=== PATIENT | male | born 1995 | race Two or more races ===

== ENCOUNTER 2023-08-22 13:56 | Emergency (ER) | payer MEDICAID, SELFPAY ==
[2023-08-22 13:58] VITALS: BP 135/70; PULSE 88; RESP 16; TEMP 36.4; O2SAT 100; BMI 21.8
--- NOTE | 2023-08-22 14:40 | ED.RN ---
Per Corinna SALCEDO, no sitter is needed at this time.
--- NOTE | 2023-08-22 14:42 | ED.RN ---
personal belongings removed from room and patient placed in a gown. Pt. has 3 belongings bags and a large yellow duffel bag. pt. updated that we would need to wait for blood and urine tests to come back then we can page crisis for him to be evaluated. pt. offered food and a remote and pt. declined.
[2023-08-22 14:47] LABS: Absolute Lymphocyte Count 1.38 X10^3/uL (0.83-4.51); Absolute Neutrophil Count 5.8 X10^3/uL (2.0-7.7); Basophil# 0.04 X10^3/uL; Basophil% 0.5 % (0-1); Eosinophil# 0.17 X10^3/uL; Eosinophils% 2.1 % (0-5); Hemoglobin 14.8 g/dL (13.0-16.5); Lymphocyte # 1.38 X10^3/ul (0.83-4.51); Mean Corp Hgb Conc 33.6 g/dL (32-36); Mean Corpuscular Hgb 30.8 pg (27.0-32.0); Mean Corpuscular Volume 91.5 fL (80-94); Mean Platelet Vol. 10.5 fl (6.2-12.0); Monocyte# 0.73 X10^3/uL; NRBC Flagged by Analyzer 0 % (0-5); Neutrophil # 5.81 X10^3/uL (2.7-7.7); Neutrophil % 71.3 % (47-70); Platelet Count 171 K/mm3 (150-450); RBC Distribution Width CV 12.4 % (11.6-14.6); RBC Distribution Width SD 41.7 fl (35.1-43.9); Red Blood Count 4.81 M/mm3 (4.6-6.2); White Blood Count 8.1 K/mm3 (4.4-11.0)
--- NOTE | 2023-08-22 14:54 | EX.ED.VIS.PS ---
HPI <MATIAS Ariza - Last Filed: 08/22/23 20:51> HPI - Psych History of Present Illness Chief Complaint: Mental Health Narrative Narrative: Today due to hallucinations. He reports that he has been hearing voices and seeing things for a long time, they do not tell him to hurt himself or do anything in particular. He reports, I am crazy. I think people are after me. I hear voices in my head. These voices are worse when I am mad. These voices do not like me. I feel like nobody likes me. Patient reports that he told his mom about what he has been experiencing and she encouraged him to come in for evaluation. He denies being diagnosed with any psychiatric conditions. He reports a remote history of suicidal ideation, but nothing recently. He reports that he is taking Suboxone that is not prescribed to him, occasionally drinks alcohol, occasionally uses cocaine, and regularly uses marijuana. He denies SI, HI. He denies any chronic health conditions. 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 PFSH <MATIAS Ariza - Last Filed: 08/22/23 20:51> COUNTS INCLUDE 234 BEDS AT [facility] Home Medications NK 08/22/23 [History Last Taken Unknown] Allergy/AdvReac Type Severity Reaction Status Date / Time No Known Allergies Allergy Verified 08/22/23 13:58 Social History Smoking Status: Current every day smoker tobacco type: e-cigarettes ROS <MATIAS Ariza - Last Filed: 08/22/23 20:51> ROS ED Constitutional Constitutional ED: Denies chills or fever(s) Cardiovascular Cardiovascular: Denies chest pain Respiratory/Chest Respiratory/Chest: Denies cough or dyspnea Gastrointestinal Gastrointestinal: Denies abdominal pain, nausea or vomiting Musculoskeletal Musculoskeletal: Denies arthralgias or myalgias Integumentary Denies Abrasions or rash Neurologic Neurologic: Denies weakness Psychiatric Psychiatric: Reports auditory hallucinations and visual hallucinations; Denies homicidal ideation, suicidal ideation or suicidal thoughts EXAM <MATIAS Ariza - Last Filed: 08/22/23 20:51> Physical Exam Const Vital Signs: 08/22/23 13:58 08/22/23 16:00 08/22/23 18:00 Temperature 97.6 F L Temperature Source Temporal Pulse Rate 88 Respiratory Rate 16 16 16 Blood Pressure 135/70 H Blood Pressure Mean 91 Pulse Ox 100 Oxygen Delivery Method Room Air Positive well nourished, well developed and no apparent distress General Appearance ED: well developed HEENT Reports normocephalic and head/scalp atraumatic Mouth ED: Yes moist mucous membranes normal Eyes PERRL and EOMs intact bilaterally Neck full ROM and supple Chest Wall inspection of chest normal Resp normal respiratory effort and clear to auscultation bilaterally Cardio regular rate and regular rhythm GI soft to palpation, non-tender, non-distended and no masses Back/Spine normal ROM and normal to inspection Extremity normal to inspection and full ROM Neuro oriented x3, CN's II-XII intact bilaterally, moves all extremities, no focal motor deficits and no sensory deficits noted Sensorium / Orientation: awake and alert Psych Appearance: grossly normal Attitude: paranoid Activity / Motor Behavior: appropriate eye contact Mood & Affect: flat affect Thought Content: phobia(s) and delusion(s) Insight: poor Judgement: poor Skin no rashes or lesions noted and no wounds <Dr. Callie Rojas MD - Last Filed: 08/22/23 15:33> Physical Exam Const Vital Signs: 08/22/23 13:58 08/22/23 16:00 08/22/23 18:00 Temperature 97.6 F L Temperature Source Temporal Pulse Rate 88 Respiratory Rate 16 16 16 Blood Pressure 135/70 H Blood Pressure Mean 91 Pulse Ox 100 Oxygen Delivery Method Room Air MDM <MATIAS Ariza - Last Filed: 08/22/23 20:51> [facility] Narrative Medical decision making narrative: Patient presenting due to hallucinations that he reports has been going on a long time. He cannot tell me in particular what the voices in his head are telling him. He reports that he is also seeing things but cannot explain exactly what he is seeing. Psychiatric clearance labs will be obtained and crisis will evaluate patient. Crisis agrees that patient would benefit from inpatient placement and are working on the referral. Patient then did become hostile with the nursing staff, he wanted to go outside to smoke his vape, they offered him a nicotine patch but he began yelling at the nurses. Nurses did get security involved and patient continued to be uncooperative. He was ordered Benadryl and Geodon by the attending ED physician. Patient has been pink slipped. Placement pending. Lab Data Attestation: I reviewed the patient's lab results. Lab results narrative: Urine toxicology screen positive for cannabinoids Labs: Laboratory Results - last 24 hr 08/22/23 14:39 WBC 8.1 RBC 4.81 Hgb 14.8 Hct 44.0 MCV 91.5 MCH 30.8 MCHC 33.6 RDW Std Deviation 41.7 RDW Coeff of Bernarda 12.4 Plt Count 171 MPV 10.5 Immature Gran % (Auto) 0.100 Neut % (Auto) 71.3 H Lymph % (Auto) 17.0 L [place] % (Auto) 9.0 Eos % (Auto) 2.1 Baso % (Auto) 0.5 Absolute Neuts (auto) 5.8 Absolute Lymphs (auto) 1.38 Nucleated RBC % 0 Sodium 140 Potassium 3.5 Chloride 111 H Carbon Dioxide 25.0 Anion Gap 4 L BUN 17 Creatinine 1.03 Estim Creat Clear Calc 118.61 Est GFR (MDRD) Af Amer 109 Est GFR (MDRD) Non-Af 90 BUN/Creatinine Ratio 16.5 Glucose 124 H Calcium 9.4 Urine Opiates Screen NEGATIVE Urine Methadone Screen NEGATIVE Ur Barbiturates Screen NEGATIVE Ur Phencyclidine Scrn NEGATIVE Ur Amphetamines Screen NEGATIVE MDMA (Ecstasy) Screen NEGATIVE U Benzodiazepines Scrn NEGATIVE Urine Cocaine Screen NEGATIVE U Cannabinoids Screen POSITIVE H Ur Drug Screen Comment Ethyl Alcohol < 3.0 <Dr. Callie Rojas MD - Last Filed: 08/22/23 15:33> [facility] Lab Data Labs: Laboratory Results - last 24 hr 08/22/23 14:39 WBC 8.1 RBC 4.81 Hgb 14.8 Hct 44.0 MCV 91.5 MCH 30.8 MCHC 33.6 RDW Std Deviation 41.7 RDW Coeff of Bernarda 12.4 Plt Count 171 MPV 10.5 Immature Gran % (Auto) 0.100 Neut % (Auto) 71.3 H Lymph % (Auto) 17.0 L [place] % (Auto) 9.0 Eos % (Auto) 2.1 Baso % (Auto) 0.5 Absolute Neuts (auto) 5.8 Absolute Lymphs (auto) 1.38 Nucleated RBC % 0 Sodium 140 Potassium 3.5 Chloride 111 H Carbon Dioxide 25.0 Anion Gap 4 L BUN 17 Creatinine 1.03 Estim Creat Clear Calc 118.61 Est GFR (MDRD) Af Amer 109 Est GFR (MDRD) Non-Af 90 BUN/Creatinine Ratio 16.5 Glucose 124 H Calcium 9.4 Urine Opiates Screen NEGATIVE Urine Methadone Screen NEGATIVE Ur Barbiturates Screen NEGATIVE Ur Phencyclidine Scrn NEGATIVE Ur Amphetamines Screen NEGATIVE MDMA (Ecstasy) Screen NEGATIVE U Benzodiazepines Scrn NEGATIVE Urine Cocaine Screen NEGATIVE U Cannabinoids Screen POSITIVE H Ur Drug Screen Comment Ethyl Alcohol < 3.0 Treatment and Re-Evaluation Narrative: Patient seen and evaluated with GIANNA. I personally interviewed and examined the patient. I was involved in all aspects of patient's orders, interpretation of results, and treatment. Patient presents for mental health evaluation. He is complaining hallucinations. When I ask him specifically if he is seeing or hearing things he states both. He is not forthcoming when asked questions about what he is seeing or hearing. When I asked him if he is hearing voices that tell him to hurt himself he states no. He does admit to having thoughts of hurting himself in the past. He states he has never actually attempted to hurt himself. He tells me he does not follow with psychiatry. Patient lying prone in the bed in no acute distress. Sleeping comfortably and easily awakens. Head neck examination unremarkable. Heart is regular rate and rhythm. No lung sounds are clear. Abdomen is soft and nontender. Patient evasive when answering questions. Does admit to thoughts of hurting himself in the past but no actual attempt. Lab work unremarkable. Talk screen positive for cannabinoids. EtOH is negative. We will have crisis come see the patient to evaluate. Patient signed out to oncoming physician while awaiting evaluation and disposition. Discharge Plan Triage Chief Complaint: Mental Health ED Midlevel Provider: Corinna Friedman ED Provider: Callie Rojas Dx/Rx/DC Orders Clinical Impression: Auditory hallucinations, Hallucinations, visual Prescriptions: No Action NK Primary Care Provider: Care Physician,No Primary Referrals: Care Physician,No Primary [Primary Care Provider] -
[2023-08-22 15:14] LABS: Amphetamine Urine VISTA NEGATIVE (<1000 ng/mL); Barbiturate Urine VISTA NEGATIVE (< 200 ng/mL); Benzodiazepine Urine VISTA NEGATIVE (< 200 ng/mL); Cocaine Urine VISTA NEGATIVE (< 300 ng/mL); Ecstacy Urine VISTA NEGATIVE (< 500 ng/mL); Methadone Urine VISTA NEGATIVE (< 300 ng/mL); PCP Urine VISTA NEGATIVE (< 25 ng/mL); THC Urine VISTA POSITIVE (< 50 ng/mL); Vista UDS pH Range 6
[2023-08-22 15:27] LABS: Alcohol, Blood (Medical)-Serum < 3.0 mg/dL
[2023-08-22 15:28] LABS: Anion Gap 4 (5-15); BUN 17 mg/dL (7-18); BUN/Creat Ratio 16.5 RATIO (10-20); Calcium,Total 9.4 mg/dL (8.5-10.1); Chloride 111 mmol/L (98-107); Creatinine, Serum 1.03 mg/dL (0.70-1.30); EST Glomerular Filtration Rate 90 mL/min (>60); Est Glom Filt Rate - Afr Amer 109 mL/min (>60); Estimated Creatinine Clearance 118.61 ml/min; Glucose 124 mg/dL (74-106); Potassium 3.5 mmol/L (3.5-5.1); Sodium Level 140 mmol/L (136-145)
--- NOTE | 2023-08-22 15:29 | ED.RN ---
CRISIS CALLED, AWARE THAT PT WILL NEED EVALUATED.
[2023-08-22 16:00] VITALS: RESP 16
[2023-08-22 18:00] VITALS: RESP 16
--- NOTE | 2023-08-22 19:30 | ED.RN ---
at approx 1930 Pt asked for his phone, patient has multiple bags of belongings. Primary nurse brings 2 bags into patient for him to search for his phone. Pt got his out vape pen out and states he wants to go out to smoke. Nurse educates patient on our no smoking policy. Pt became very agitated. Nurse offers a nicotine patch, patient grabs his bags and proceeds to empty them out and get dressed. Security called to the room. Pt was not able to be redirected. He got up in the nurses face and security's face and was threatening harm to staff. Dr Mendez made aware.Pt was given multiple opportunities to comply to the rules. verbal de-escalation unsuccessful. Dispatch was called to send PD to bedside. 3 officers arrive to bedside. Pt given multiple opportunities to get into bed and put the gown back on. Pt states you put me in bed pt refuses to follow directions. PD and security and ED staff assist patient into the bed, he is yelling and fighting back. Pt was restrained at [address] Mendez's orders.
[2023-08-22] MEDS: DiphenhydrAMINE 50 MG/ML Syringe IM (19:42)
[2023-08-22] MEDS: Ziprasidone IM 20 MG/ML VIAL IM (19:42)
--- NOTE | 2023-08-22 20:25 | ED.RN ---
support worker speaks to Dr Mendez regarding setting patient up with outpatient services. Dr Mendez states he does not feel comfortable with that plan and feels the patient needs placed. support worker leaves without discussing anything further.
[2023-08-22 21:15] VITALS: BP 139/76; PULSE 84; RESP 16; O2SAT 99
[2023-08-22 23:00] VITALS: RESP 18
--- NOTE | 2023-08-23 00:50 | ED.RN ---
Assessment received via fax from crisis. ED staff call crisis center to speak someone due to the assessment still saying patient is set up for outpatient treatment. Spoke with Linda from [facility] who then spoke with Dr Mendez on the phone. She states the previous germination worker told her that the Dr was agreeable to send patient home with outpatient treatment plan. ED staff express our frustration believing that we were under the assumption that crisis was working on placement. Linda states she will come do a re-assessment on patient.
[2023-08-23 01:00] VITALS: RESP 18
[2023-08-23 04:32] VITALS: RESP 15
--- NOTE | 2023-08-23 08:23 | ED.RN ---
ARIANA CALLED, ETA 2-3 HOURS ([phone])
[2023-08-23 10:51] VITALS: BP 128/72; PULSE 81; RESP 16; TEMP 36.2; O2SAT 100
== END 2023-08-23 11:21 ==
PROVIDERS: Physician Assistant; Emergency Provider Emergency Medicine; Visit Provider Emergency Medicine
DX: R44.0 Auditory hallucinations (principal); F17.290 Nicotine dependence, other tobacco product, uncomplicated; R44.1 Visual hallucinations
CPT/HCPCS: 80048; 80307; 80320; 85025; 96372; 99285; G0480; J3486